=== PATIENT | female | born 1960 | race Caucasian/White ===

== ENCOUNTER 2019-06-27 10:50 | Emergency (ER) | payer OTHER ==
[2019-06-27 12:24] VITALS: BP 106/66
--- NOTE | 2019-06-27 12:37 | UC ---
Abdominal Pain Female HPI - HPI Summary HPI Summary: Patient is a 59-year-old female with a medical history of Crohn's disease for which she is on Pentasa, diverticulitis, bowel obstruction. Patient states the last 3 days she's had increasing abdominal distention and cramping. Patient states she awoke with nausea no vomiting. Patient states she feels bloated but is passing a little bit of gas. No blood or black in her stool. Patient states this does not feel like her typical Crohn's and she is concerned it could be a bowel obstruction. Patient states she called her GI doctor and her PCP who told her to go to the emergency department but she came here. Patient did not take anything for pain. Patient without any fevers. No back pain. No urinary or vaginal symptoms. Patient's medications reviewed this visit. - History of Current Complaint Chief Complaint: UCGI Stated Complaint: BOWEL COMPLAINT Time Seen by Provider: 06/27/19 12:36 Hx Obtained From: Patient Hx Last Menstrual Period: 5 yrs ?: No Onset/Duration: Gradual Onset Severity Initially: Mild Severity Currently: Moderate Pain Intensity: 5 Allergies/Adverse Reactions: Allergies Allergy/AdvReac Type Severity Reaction Status Date / Time Scallops, some seafoods Allergy Vomiting Uncoded 06/27/19 12:11 Home Medications: Home Medications Losartan TAB* [Cozaar TAB*] 25 mg PO DAILY 06/27/19 [History Confirmed 06/27/19] Mesalamine CAP(NF) [Pentasa(NF)] 1 cap PO TID 06/27/19 [History Confirmed ] amLODIPine TAB* [Norvasc 5 mg TAB*] 2.5 mg PO DAILY 06/27/19 [History Confirmed 06/27/19] PMH/Surg Hx/FS Hx/Imm Hx Previously Healthy: Yes GI/ History: Other - Crohn's, bowel obstruction, diverticulitis - Surgical History Surgical History: Yes Surgery Procedure, Year, and Place: BLADDER [place] - Family History Known Family History: Positive: Non-Contributory - Social History Occupation: Employed Full-time - owns business Lives: With Family Alcohol Use: Daily Alcohol Amount: 3-4 drinks/day Substance Use Type: None Smoking Status (MU): Heavy Every Day Tobacco Smoker Type: Cigarettes Amount Used/How Often: 3/4 PPD Length of Time of Smoking/Using Tobacco: 40 years Review of Systems All Other Systems Reviewed And Are Negative: Yes Constitutional: Positive: Negative Skin: Positive: Negative Eyes: Positive: Negative ENT: Positive: Negative Respiratory: Positive: Negative Cardiovascular: Positive: Negative Gastrointestinal: Positive: Abdominal Pain, Diarrhea, Nausea, Other - distended Genitourinary: Positive: Negative Physical Exam - Summary Physical Exam Summary: Vital Signs Reviewed: Yes A+Ox3, obvious discomfort Eyes: Conjunctiva Clear, MARGO. EOM intact and full ENT: Hearing grossly normal TM x 2 clear, mmoist, uvula midline, no exudate, no erythema Neck: Positive: Supple Respiratory: Positive: No respiratory distress, No accessory muscle use + CTA throughout no w/r Cardiovascular: RRR nl s1, s2 no m/r CBT <2 sec abd soft decreased BS, + TTP LLQ >> RLQ no guarding, no rebound obvious discomfort Musculoskeletal Exam: SUERO x 4 without difficulty Strength Intact, ROM Intact Neurological: Positive: Alert, + sensation throughout Psychological: Positive: Normal Response To examiner Skin: Positive: no rash, no ecchymosis Triage Information Reviewed: Yes Vital Signs: Initial Vital Signs Temp 97.6 F 06/27/19 12:14 Pulse 86 06/27/19 12:14 Resp 16 06/27/19 12:14 BP 106/66 06/27/19 12:14 Pulse Ox 99 06/27/19 12:14 Abd Pain Female Course/Dx - Course Course Of Treatment: Patient is a 59-year-old female with history of diverticulitis, Crohn disease, mL obstruction. Patient here with progressive lower abdominal pain. Patient denies fevers but states has had chills. No analgesic taken. Patient making small stools passing no flatus. Patient states it feels more like her bowel injection than when she's had a Crohn's. On exam vital signs are stable. Patient obviously in discomfort. Patient with tenderness lower abdomen (agree. Recommend patient remembers [facility] for further testing and evaluation. Patient states understanding and agreement with plan. Did call and speak to the charge nurse at [facility] which is where the patient requested to go. Patient will directly there for further eval. - Differential Dx/Diagnosis Provider Diagnosis: Abdominal pain Discharge ED - Sign-Out/Discharge Documenting (check all that apply): Patient Departure All imaging exams completed and their final reports reviewed: No Studies - Discharge Plan Condition: Stable Disposition: HOME-RECOMMEND TO ED Patient Education Materials: Abdominal Pain (ED) Referrals: Deborah Boston [Primary Care Provider] - Additional Instructions: The doctor that evaluated you today thinks that you need additional testing that can be completed the emergency department. It is recommended that you go directly to emergency department for further evaluation. This evaluation included blood work or imaging. This testing will be directed and decided by the provider that evaluates you at the emergency department. If pain becomes worse, you feel lightheaded, you have uncontrolled vomiting, or you have any other concerns while you are being driven to emergency department as recommended to pullover contact 911. You will be triaged and treated according to the process at the emergency department where you are evaluated. - Billing Disposition and Condition Condition: STABLE Disposition: Home-Recommend to ED
== END 2019-06-27 12:53 | disposition home health service (06) ==
LOC: UCCORT 10:50
DX: R10.30 Lower abdominal pain, unspecified (principal); R19.7 Diarrhea, unspecified; R11.0 Nausea; K50.90 Crohn's disease, unspecified, without complications; K57.92 Diverticulitis of intestine, part unspecified, without perforation or abscess without bleeding; F17.210 Nicotine dependence, cigarettes, uncomplicated; Z91.013 Allergy to seafood; Z79.899 Other long term (current) drug therapy
CPT/HCPCS: 99212; G0463

== ENCOUNTER 2021-04-11 08:38 | Inpatient (IN) ==
[2021-04-11] MEDS ORDERED: Senna TAB 8.6 mg TAB PO PRN (14:34)
[2021-04-11] MEDS ORDERED: Magnesium Hydroxide LIQ 30 ML UDC PO PRN (14:34)
[2021-04-11] MEDS: Sodium Bicarb 650 mg (ANTACID) TAB PO SCH (20:23)
[2021-04-11] MEDS: Heparin 5000 UNITS/ML 1 mL VIAL SUBCUT SCH (20:30)
[2021-04-12 06:56] LABS: ABS Basophils 0.1 10^3/ul (0-0.2); ABS Eosinophils 0.2 10^3/ul (0-0.6); ABS Monocytes 0.7 10^3/ul (0-0.8); ABS Neutrophils 4.1 10^3/ul (1.5-7.7); Eosinophil % 3.1 %; Hematocrit 30 % (35-47); Lymphocyte % 15.9 %; Mean Corpuscular HGB Conc 34 g/dL (31-36); Mean Corpuscular Hemoglobin 29 pg (27-31); Mean Corpuscular Volume 87 fL (80-97); Mean Platelet Volume 6.7 fL (7.4-10.4); Platelet Count 316 10^3/uL (150-450); Red Blood Count 3.41 10^6 /uL (3.70-4.87); Red Cell Distribution Width 15 % (10-15)
[2021-04-12 07:26] LABS: Albumin 3.1 g/dL (3.2-5.2); Albumin/Globulin Ratio 0.6 (1-3); EGFR African American 13.9 (>60); EGFR Non-African American 11.5 (>60); Globulin 4.8 g/dL (2-4); Potassium 3.6 mmol/L (3.5-5.0); Total Bilirubin 0.5 mg/dL (0.2-1.0); Total Protein 7.9 g/dL (6.4-8.9)
[2021-04-12] MEDS: Sodium Bicarb 650 mg (ANTACID) TAB PO SCH ×3 (08:09→19:25)
[2021-04-12] MEDS: Heparin 5000 UNITS/ML 1 mL VIAL SUBCUT SCH ×2 (08:12→19:22)
[2021-04-12] MEDS ORDERED: Pneumococcal Vac 23-Polyvalent IM ONE (09:00)
[2021-04-12 19:21] LABS: Urine Appearance Clear; Urine Bilirubin Negative (Negative); Urine Blood Negative (Negative); Urine Color Yellow; Urine Glucose Negative (Negative); Urine Ketones Negative (Negative); Urine Nitrite Negative (Negative); Urine Protein 3+(>=500 mg/dL) (Negative); Urine Specific Gravity 1.015 (1.002-1.030); Urine Urobilinogen Negative (Negative)
[2021-04-12] MEDS: HYDROcodone/ACETAMIN 5/325 mg TAB PO PRN (19:23)
[2021-04-12 19:24] LABS: Urine Bacteria 1+ (Absent); Urine Red Blood Cell Trace(0-2/hpf) (Absent); Urine Squamous Epithelial Cell Present (Absent); Urine White Blood Cell 1+(6-10/hpf) (Absent)
[2021-04-12] MEDS: Psyllium PAK PO SCH (19:25)
[2021-04-13] MEDS: HYDROcodone/ACETAMIN 5/325 mg TAB PO PRN (01:21)
[2021-04-13 06:32] LABS: EGFR African American 13.3 (>60); Potassium 3.5 mmol/L (3.5-5.0)
[2021-04-13] MEDS: Sodium Bicarb 650 mg (ANTACID) TAB PO SCH ×4 (09:06→22:22)
[2021-04-13] MEDS: Heparin 5000 UNITS/ML 1 mL VIAL SUBCUT SCH ×2 (09:07→22:21)
[2021-04-13] MEDS ORDERED: Ondansetron ODT 4 mg TAB 4 MG TAB PO ONE (09:30)
[2021-04-13] MEDS: Psyllium PAK PO SCH ×2 (10:34→22:28)
[2021-04-13] MEDS ORDERED: Ondansetron ODT 4 mg TAB 4 MG TAB PO PRN (12:34)
[2021-04-14] MEDS: oxyCODONE/Acetamin 5/325 mg TAB PO PRN ×2 (04:04→22:19)
[2021-04-14 05:58] LABS: Calcium 9.2 mg/dL (8.6-10.3); EGFR African American 12.9 (>60); EGFR Non-African American 10.6 (>60); Potassium 3.5 mmol/L (3.5-5.0)
[2021-04-14] MEDS: Sodium Bicarb 650 mg (ANTACID) TAB PO SCH ×3 (09:33→20:49)
[2021-04-14] MEDS: Psyllium PAK PO SCH ×2 (09:34→21:09)
[2021-04-14] MEDS: Heparin 5000 UNITS/ML 1 mL VIAL SUBCUT SCH ×2 (09:34→20:49)
[2021-04-15 08:13] LABS: Calcium 9.2 mg/dL (8.6-10.3); EGFR African American 12.2 (>60); EGFR Non-African American 10.1 (>60); Potassium 4.3 mmol/L (3.5-5.0)
[2021-04-15] MEDS: Sodium Bicarb 650 mg (ANTACID) TAB PO SCH (08:43)
[2021-04-15] MEDS: Heparin 5000 UNITS/ML 1 mL VIAL SUBCUT SCH ×2 (08:44→20:55)
[2021-04-15] MEDS: Psyllium PAK PO SCH ×2 (08:46→20:56)
[2021-04-15] MEDS: oxyCODONE/Acetamin 5/325 mg TAB PO PRN ×3 (12:50→21:21)
[2021-04-15] MEDS: NS 0.9% 1000 ml BAG 1,000 ML IV SCH ×2 (13:49→23:41)
[2021-04-16] MEDS: oxyCODONE/Acetamin 5/325 mg TAB PO PRN ×3 (02:09→20:12)
[2021-04-16] MEDS: Heparin 5000 UNITS/ML 1 mL VIAL SUBCUT SCH ×2 (09:12→20:11)
[2021-04-16] MEDS: Psyllium PAK PO SCH ×2 (09:14→20:38)
[2021-04-16 09:50] LABS: Calcium 8.8 mg/dL (8.6-10.3); EGFR African American 13.1 (>60); EGFR Non-African American 10.8 (>60); Potassium 3.8 mmol/L (3.5-5.0)
[2021-04-16] MEDS ORDERED: NS 0.9% 1000 ml BAG 1,000 ML IV SCH (13:15)
[2021-04-16] MEDS: NS 0.9% 1000 ml BAG 1,000 ML IV SCH (15:11)
[2021-04-17] MEDS: oxyCODONE/Acetamin 5/325 mg TAB PO PRN ×4 (03:42→23:17)
[2021-04-17 07:15] LABS: ABS Eosinophils 0.1 10^3/ul (0-0.6); ABS Lymphocytes 0.8 10^3/ul (1.0-4.8); ABS Monocytes 0.4 10^3/ul (0-0.8); ABS Neutrophils 3.7 10^3/ul (1.5-7.7); Eosinophil % 2.7 %; Hematocrit 26 % (35-47); Hemoglobin 8.7 g/dL (12.0-16.0); Lymphocyte % 16.4 %; Mean Corpuscular HGB Conc 33 g/dL (31-36); Mean Corpuscular Hemoglobin 29 pg (27-31); Mean Corpuscular Volume 88 fL (80-97); Platelet Count 254 10^3/uL (150-450); Red Cell Distribution Width 15 % (10-15); White Blood Count 5.2 10^3/uL (3.5-10.8)
[2021-04-17 07:23] LABS: Calcium 8.4 mg/dL (8.6-10.3); EGFR African American 14.1 (>60); EGFR Non-African American 11.7 (>60); Potassium 3.6 mmol/L (3.5-5.0)
[2021-04-17] MEDS: Heparin 5000 UNITS/ML 1 mL VIAL SUBCUT SCH ×2 (08:08→21:02)
[2021-04-17] MEDS: Psyllium PAK PO SCH ×2 (08:08→21:03)
[2021-04-17] MEDS ORDERED: NS 0.9% 500 ml BAG 500 ML IV ONE (13:30)
[2021-04-18 04:23] VITALS: BP 149/69
[2021-04-18] MEDS: oxyCODONE/Acetamin 5/325 mg TAB PO PRN ×2 (06:35→10:57)
[2021-04-18] MEDS: Heparin 5000 UNITS/ML 1 mL VIAL SUBCUT SCH (08:21)
[2021-04-18] MEDS: Psyllium PAK PO SCH ×2 (08:21→08:26)
[2021-04-18 11:43] LABS: EGFR African American 14.5 (>60); Potassium 3.9 mmol/L (3.5-5.0)
== END 2021-04-18 11:57 | disposition home health service (06) | DRG 862 ==
LOC: PMRU 11:55
PROVIDERS: ADMIT Physical Medicine & Rehabilitation; ATTEND Physical Medicine & Rehabilitation